=== PATIENT | female | born 1990 | race Caucasian/White ===

== ENCOUNTER 2016-12-09 00:10 | Inpatient (IN) | payer OTHER ==
[~2016-12-09] VITALS: Ht 167.6 cm; Wt 78.3 kg
[2016-12-09 00:52] VITALS: BP 124/77; PULSE 94; Ht 167.6 cm; Wt 78.3 kg
[2016-12-09] MEDS ORDERED: LACTATED RINGER'S 1,000 ML IV SCH (01:19)
[2016-12-09] MEDS ORDERED: BUTORPHANOL 2 MG INJ IV PRN (01:30)
[2016-12-09] MEDS ORDERED: OXYTOCIN 30 UNITS/LR 500 ML IV PRN ×2 (01:30→07:30)
[2016-12-09] MEDS ORDERED: LIDOCAINE 1% (MPF) 30 ML INJ INJ PRN (01:30)
[2016-12-09] MEDS ORDERED: AMPICILLIN 2 GM/NS (PMX) 100 ML IV ONE (01:30)
[2016-12-09] MEDS ORDERED: MISOPROSTOL 200 MCG TAB PR PRN ×2 (01:30→07:30)
[2016-12-09] MEDS ORDERED: CARBOPROST 250 MCG INJ IM PRN ×2 (01:30→07:30)
[2016-12-09] MEDS ORDERED: METHYLERGONOVINE 0.2 MG INJ IM PRN ×2 (01:30→07:30)
[2016-12-09] MEDS ORDERED: OXYTOCIN 30 UNITS/LR 500 ML IV SCH (01:30)
[2016-12-09 02:24] LABS: BASOPHILS % 0.3 % (0.0-2.0); EOSINOPHILS # 0.1 10^3/ul (0.0-0.5); EOSINOPHILS % 0.8 % (0.0-7.0); HEMATOCRIT 28.4 % (37.0-47.0); HEMOGLOBIN 9.1 g/dl (12.0-16.0); LYMPHOCYTES # 2.2 10^3/ul (0.8-2.9); LYMPHOCYTES % 15.8 % (15.0-51.0); MEAN CORPUSCULAR HEMOGLOBIN 19.9 pg (29.0-33.0); MEAN CORPUSCULAR VOLUME 62.1 fl (82.0-101.0); MEAN PLATELET VOLUME 11.2 fl (7.4-10.4); MONOCYTES % 7.4 % (0.0-11.0); NEUTROPHILS % 74.8 % (39.0-77.0); PLATELET COUNT 308 10^3/UL (140-415); RED BLOOD COUNT 4.57 10^6/ul (4.20-5.40); RED CELL DISTRIBUTION WIDTH 14.6 % (11.5-14.5)
[2016-12-09 02:36] LABS: INR 0.91; PROTIME 12.2 Sec (12.2-14.2)
--- NOTE | 2016-12-09 02:55 | TRIAGE ---
OB Triage Datetime Report Generated by CPN: 12/09/2016 02:55 Datetime: 12/09/2016 02:16 Vaginal Exam Dilatation (cms): 3.0 Effacement (%): 90 Station: -2 Datetime: 12/09/2016 01:55 Stage of : Labor Assessment Type: Admission Assessment Vaginal Bleeding: None Maternal Assessment Level of Consciousness: Fully Conscious DTR's/Clonus: DTRs 2+; No Clonus Headache: Denies Blurred Vision: No Respiratory Effort: Unlabored; Regular Rhythm; Equal Expansion Breath Sounds, Left: Clear and Equal Breath Sounds, Right: Clear and Equal Nausea/Vomiting: Denies RUQ Epigastric Pain: Denies Lower Extremities Edema: None Degree: None Upper Extremities Edema: None Degree: None Facial Edema: None Fall Risk Assessment History of Falling: (0) No Secondary Diagnosis: (0) No Ambulatory Aid: (0) Bedrest/Nurse Assist IV Therapy: (20) Yes Gait: (0) Normal/Bedrest/Immobile Mental Status: (0) Oriented to Own Ability Fall Score: 20 Fall Risk Score Definition: No Risk: No action required Labor Evaluation Frequency: 2-4 Duration (sec)2399: 40-70 Quality: Moderate Pattern: Normal: <= 5 Contractions in 10 Minutes Resting Tone [place]: Relaxed Heart Rate FHR Baseline Rate: 145 Variability: Moderate 6-25 bpm Accelerations: 15X15 Decelerations: None Pain Assessment Pain Scale: 8 Pain Presence: Intermittent Pain Type: Contraction Pain Location: Abdomen; Back Pain Goal: 3 Membrane Status: Ruptured Membranes Ruptured Date/Time: 12/08/2016 23:00 Membranes Rupture Method: Spontaneous Datetime: 12/09/2016 01:25 Stage of : OB Triage Temperature Route: Oral Labor Evaluation Frequency: 2-5 Monitor Mode: External Duration (sec)2399: 40-60 Quality: Mild Pattern: Normal: <= 5 Contractions in 10 Minutes Resting Tone [place]: Relaxed Heart Rate FHR Baseline Rate: 135 Monitor Mode: External US Variability: Moderate 6-25 bpm Accelerations: 15X15 Decelerations: None Category: Category I Pain Assessment Pain Scale: 5 Pain Presence: Intermittent Pain Type: Cramping Pain Location: Abdomen Pain Goal: 3 Pain Relief Measures: Comfort Measures Datetime: 12/09/2016 01:05 Time of Arrival: 12/09/2016 01:35 EGA: 39.2 Arrived By: Wheelchair Arrived From: Emergency Dept Chief Complaint: RUTURED MEMBRANE AT 2300, CXS EVERY 5 MIN Movement: Present Contractions: Occasional Time Contractions Began: 12/08/2016 23:00 Rupture of Membranes: Ruptured Vaginal Discharge: Present Patient Complaints: None Time Provider Notified: 12/09/2016 01:13 Provider Notified: LORENA Initial Plan: EFM, NITRIZINE, STERILE SPECULUM AND VE Datetime: 12/09/2016 01:02 Vaginal Exam Dilatation (cms): 3.0 Effacement (%): 90 Station: -2 Exam By: BINH Vaginal Bleeding: None Cervix, Consistency: Soft Cervix, Position: Posterior Datetime: 12/09/2016 01:00 Membrane Status: Ruptured Membranes Rupture Method: Spontaneous Amniotic Fluid Amount: Small Pool: Positive Nitrazine: Positive Datetime: 12/09/2016 00:50 Maternal Assessment Level of Consciousness: Fully Conscious DTR's/Clonus: DTRs 2+; No Clonus Headache: Denies Blurred Vision: No Respiratory Effort: Unlabored; Regular Rhythm; Equal Expansion Breath Sounds, Left: Clear and Equal Breath Sounds, Right: Clear and Equal Nausea/Vomiting: Denies RUQ Epigastric Pain: Denies Lower Extremities Edema: None Upper Extremities Edema: None Facial Edema: None Fall Risk Assessment History of Falling: (0) No Secondary Diagnosis: (0) No Ambulatory Aid: (0) Bedrest/Nurse Assist IV Therapy: (0) No Gait: (0) Normal/Bedrest/Immobile Mental Status: (0) Oriented to Own Ability Fall Score: 0 Fall Risk Score Definition: No Risk: No action required
[2016-12-09] MEDS ORDERED: AMPICILLIN 1 GM/NS (PMX) 50 ML IV SCH (05:30)
[2016-12-09] MEDS: OXYTOCIN 30 UNITS/LR 500 ML IV SCH ×2 (05:36→06:12)
--- NOTE | 2016-12-09 06:20 | DELSUM ---
Delivery Summary A-C Datetime Report Generated by CPN: 12/09/2016 06:19 DELIVERY PERSONNEL Farm Planner: Heredia, Shirlene MATERNAL INFORMATION Delivery Anesthesia: Local Medications in Delivery: 30 UNIT PITOCIN Estimated Blood Loss (ml): 250 Placenta Cultured: No Maternal Complications: None LABOR SUMMARY EDC: 12/14/2016 00:00 No. Babies in Womb: 1 Attempted: No Labor Anesthesia: None LABOR INFORMATION Reason for Induction: Not Applicable Onset of Labor: 12/08/2016 23:00 Complete Dilatation: 12/09/2016 04:34 Oxytocin: N/A Group B Beta Strep: Positive Antibiotics # of Doses: 1 Antibiotics Time of Last Dose: 12/09/2016 02:06 Steroids Given: None Reason Steroids Not Administered: Not Applicable Other Reason Not Administered: TERM MEMBRANES Membranes Rupture Method: Spontaneous Membranes Rupture Method: Spontaneous Rupture of Membranes: 12/08/2016 23:00 Length of Rupture (hr): 6.37 Amniotic Fluid Color: Clear Amniotic Fluid Amount: Small STAGES OF LABOR Stage 1 hr: 5 Stage 1 min: 34 Stage 2 hr: 0 Stage 2 min: 48 Stage 3 hr: 0 Stage 3 min: 6 Total Time in Labor hr: 6 Total Time in Labor min: 28 VAGINAL DELIVERY Episiotomy: None Laceration Extension: Second Degree Laceration Type: Perineal Laceration Repair: Yes Initial Vag Sponge Count: 10 Final Vag Sponge Count: 10 Initial Vag Sharps Count: 1 Final Vag Sharps Count: 3 Sponge Count Correct: Yes; Vaginal Sweep Performed Sharps Count Correct: Yes Count Comment: 2 SHARPs ADDED TO FIELD BABY A INFORMATION Delivery Date/Time: 12/09/2016 05:22 Method of Delivery: Vaginal Born in Route : No : N/A Forceps: N/A Vacuum Extraction: Successful Shoulder Dystocia : N/A ASSISTED DELIVERY BABY A Indication for Assisted Delivery: BRADYCARDIA Catheter Prior to Procedure: No Vacuum Number of Pulls: 1 Vacuum Number of PopOffs: 0 Vacuum Maximum Pressure Obtained: 100 Reduce Pressure btwn Ctx: No Vacuum Cooker Sulfate: KIWI Total Time Vacuum Applied: 30 SECONDS SHOULDER DYSTOCIA BABY A Delivery Date/Time: 12/09/2016 05:22 PRESENTATION/POSITION BABY A Presentation: Cephalic Cephalic Presentation: Vertex Vertex Position: Left Occipital Anterior Breech Presentation: N/A PLACENTA INFORMATION BABY A Placenta Delivery Time : 12/09/2016 05:28 Placenta Method of Delivery: Spontaneous Placenta Status: Delivered SCORES BABY A Heart Rate 1 min: >100 bpm Resp Effort 1 min: Good Cry Reflex Irritability 1 min: Cough/Sneeze/Pulls Away Muscle Tone 1 min: Active Motion Color 1 min: Body [place], Extremit Blue Resuscitation Effort 1 min: Tactile Stimulation SCORE 1 MIN: 9 Heart Rate 5 min: >100 bpm Resp Effort 5 min: Good Cry Reflex Irritability 5 min: Cough/Sneeze/Pulls Away Muscle Tone 5 min: Active Motion Color 5 min: Completely [place] Resuscitation Effort 5 min: Tactile Stimulation SCORE 5 MIN: 10 INFORMATION BABY A Gestational Age at Delivery: 39.2 Gestational Status: Full Term- 39- 40.6 Weeks Infant Outcome : Liveborn Condition : Stable Infant Sex: Female IDENTIFICATION/MEDS BABY A ID Band Number: [id number] ID Band Location: Right Leg; Left Arm Sensor Applied: Yes Sensor Number: [id number] Sensor Location : Cord Clamp Vitamin K Given : Not Given Erythromycin Given: Not Given WEIGHT/LENGTH BABY A Infant Birthweight (gm): 3185 Infant Weight (lb): 7 Infant Weight (oz): 0 Length (in): 19.00 Length (cm): 48.26 CORD INFORMATION BABY A No. Cord Vessels: 3 Nuchal Cord : Around Neck x1, Loose Cord Blood Taken: Yes Suction: Mouth; Nose ASSESSMENT BABY A Complications: Extended Bradycardi Physical Findings at Delivery: Within Normal Limits Infant Respirations: Appears Normal Cna Instructor/ALS Called : No Care By: Thiago AGUILAR Transferred To: Remains with Mother
--- NOTE | 2016-12-09 07:01 | HP ---
Date/Time of Note Date/Time of Note DATE: 12/09/16 TIME: 06:55 OB - History Hx of Present Free Text/Dictation 26y.o primigravida at 39w2d with c/o uterine contractions with rom at 12/08/16/ 2300 known to have GBS positive initial VE 3cm 90% /-2 EFM tracing reactive , confirmed SROM admitted for expectant management. Chief Complaint: U.C, SROM Estimated Due Date: Dec 14, 2016 : 1 Para: 0 Spontaneous : 0 Therapeutic : 0 Care: Good Care Ultrasounds: Normal mid trimester US Obstetrical Complications: None Medical Complications: None Past Family/Social History * Past Medical, Surgical, Family and Obstetric Histories reviewed from chart. Blood Type: O+ Rubella: immune RPR/VDRL: Negative GBS Status: Positive HBsAG: Negative OB Admission Exam Vital Signs Vital Signs Vital Signs Date Time Temp Pulse Resp B/P Pulse Ox O2 Delivery O2 Flow Rate FiO2 12/09/16 00:52 98.1 94 124/77 Room Air Physical Exam HEENT: WNL Heart: Rhythm Normal Lungs: Clear, Equal Abdomen: WNL Extremities: Normal Reflexes: Normal Cervical Dilatation: 3cm Effacement: Other (90%) Station: -2 Membranes: Ruptured Amniotic Fluid: Clear Heart Rate: 130's Accelerations: Accelerations Present Decelerations: No Decelerations Varibility: Moderate Contractions on Admission: < 5 Minutes Apart Intensity: Moderate Last 72 hours Lab Results CBC & BMP 12/09/16 02:00 OB Assessment/Plan Reason for admission: active labor Plan: Expectant Management JAQUELINE CARRILLO MD Dec 09, 2016 07:01
[2016-12-09] MEDS ORDERED: LACTATED RINGER'S 1,000 ML IV* SCH (07:17)
[2016-12-09] MEDS ORDERED: BENZOCAINE 20% 56 ML SPRAY TOP PRN (07:30)
[2016-12-09] MEDS ORDERED: LANOLIN 7 GM TUBE TOP PRN (07:30)
[2016-12-09] MEDS ORDERED: HYDROCODONE/APAP (5/325) TAB PO PRN (07:30)
[2016-12-09] MEDS ORDERED: LACTATED RINGER'S 1,000 ML IV PRN (08:00)
[2016-12-09 10:00] VITALS: BP 119/68; PULSE 82; RESP 19
[2016-12-09] MEDS: IBUPROFEN 600 MG TAB PO SCH ×3 (12:40→23:49)
[2016-12-09 16:00] VITALS: BP 112/59; PULSE 95; RESP 18
[2016-12-09 19:30] VITALS: BP 113/61; PULSE 84; RESP 19
--- NOTE | 2016-12-09 21:27 | LDN ---
Date/Time of Note Date/Time of Note DATE: 12/09/16 TIME: 21:24 Delivery Summary of a viable baby girl weighing 3185 grams, or 7#, 19" long, and with Apgars of 9/10. Weeks of Gestation 39w 2d Placenta Delivered: Spontaneously Meconium: none Episiotomy: No Perineal laceration: 2 Laceration repair: Second degree perineal laceration and a few first degree vaginal lacerations were repaired with 2-o chromic. Anesthesia type: Local Estimated blood loss: 250 Sponge & Needle done & correct: Yes All needle counts correct: Yes Any foreign bodies felt in the: No (vagina) Problems: Delivery Information Sex Sex: female Apgars 1 Minute: 9 5 Minute: 10 Suctioning Nose & mouth suctioned at antonina: Yes Delee suction performed: No Umbilical Cord Umbilical cord with: 3 Vessels Cord presentations: nuchal cord Nuchal cord present X: 1 Cord Blood was obtained: Yes Mother & Baby Disposition Disposition Mom & Baby to Maternity; Good: Yes Baby to NICU: No JEANA REHMAN MD Dec 09, 2016 21:27
[2016-12-10 04:00] VITALS: BP 105/62; PULSE 89; RESP 20
[2016-12-10] MEDS: IBUPROFEN 600 MG TAB PO SCH ×3 (05:44→18:08)
[2016-12-10 08:00] VITALS: BP 115/59; PULSE 79; RESP 20
[2016-12-10 09:17] LABS: BASOPHIL # 0.1 10^3/ul (0.0-0.1); BASOPHILS % 0.4 % (0.0-2.0); EOSINOPHILS # 0.1 10^3/ul (0.0-0.5); EOSINOPHILS % 1.1 % (0.0-7.0); HEMATOCRIT 24.6 % (37.0-47.0); HEMOGLOBIN 7.7 g/dl (12.0-16.0); LYMPHOCYTES # 2.5 10^3/ul (0.8-2.9); LYMPHOCYTES % 19.2 % (15.0-51.0); MEAN CORPUSCULAR HGB CONC 31.3 g/dl (32.0-37.0); MEAN CORPUSCULAR VOLUME 63.9 fl (82.0-101.0); MEAN PLATELET VOLUME 10.9 fl (7.4-10.4); MONOCYTE # 0.9 10^3/ul (0.3-0.9); MONOCYTES % 7.2 % (0.0-11.0); NEUTROPHILS % 71.4 % (39.0-77.0); PLATELET COUNT 229 10^3/UL (140-415); RED BLOOD COUNT 3.85 10^6/ul (4.20-5.40); RED CELL DISTRIBUTION WIDTH 14.8 % (11.5-14.5); WHITE BLOOD COUNT 12.9 10^3/ul (4.8-10.8)
[2016-12-10 12:31] VITALS: BP 124/61; PULSE 80; RESP 19
[2016-12-10 12:42] VITALS: BP 124/61; PULSE 80; RESP 20
[2016-12-10 16:57] VITALS: BP 120/77; PULSE 77; RESP 20
[2016-12-10 20:25] VITALS: BP 110/68; PULSE 70; RESP 18
--- NOTE | 2016-12-10 22:35 | QN ---
Documentation Comment Progress Note PPD #1 Pt feels well. Bleeding has lessened. is going much better today after the acquisition consultant helped her. Pain is minimal. T=98.2 BP 110/68 Fundus firm. Lochia minimal. Ext NT, no edema. WBC 12.9 Hgb 7.7 Plts 229K A: PPD #1. Anemia. P: Pt started out anemic and her BP and HR are normal so will just encourage iron therapy once she gets home. Plan D/C tomorrow. JEANA REHMAN MD Dec 10, 2016 22:35
--- NOTE | 2016-12-10 22:35 | PD.PPDC ---
PLASTERER STUCCO Discharge Instruction Condition Patient Condition: Good Diet Diet: Resume Regular Diet Activity/Restrictions Activity: Normal Activity May Shower Restrictions: No Sexual Activity Nothing in the Vagina No [place] No Tampons, douche Follow-up Follow-up with Physician: 6, Week/Weeks Return to clinic for LACTATION SPECIALIST Instructions: Fever greater than 101 Chills Worsening abdominal pain Excessive Vaginal Bleeding OB Instructions: Breast Tenderness Depression JEANA REHMAN MD Dec 10, 2016 22:35
[2016-12-11 04:15] VITALS: BP 121/67; PULSE 86; RESP 18
[2016-12-11] MEDS: IBUPROFEN 600 MG TAB PO SCH ×3 (05:51→11:18)
[2016-12-11] MEDS ORDERED: DIPHTH/TET/ACEL PERTUSS (ADULT) 0.5 ML VIAL IM* ONE (09:00)
[2016-12-11 09:12] VITALS: BP 113/70; PULSE 95; RESP 18
--- NOTE | 2016-12-11 18:45 | DS ---
Date/Time of Note Date/Time of Note DATE: 12/11/16 TIME: 18:44 Obstetrical Discharge Record Final Diagnosis Final Diagnosis: Term delivered Vaginal Delivery Obstetrical Delivery: Spontaneous, Laceration, Repaired Complications Augmentation: No Induction: No Condition on Discharge Physical Assessment Last Vitals: T=98.8 BP 113/70 Voiding: Yes Bowel Movement: Yes Breast: Filling Fundus: Firm Calf Tenderness: No Patient Condition: Good JEANA REHMAN MD Dec 11, 2016 18:45
== END 2016-12-11 16:00 | disposition home or self-care (01) | DRG 775 ==
LOC: OBT 00:10 → L-D 00:15 → OBT 01:13 → L-D 01:13 → PP1 09:20
PROVIDERS: ADMIT Obstetrics & Gynecology; ATTEND Obstetrics & Gynecology
PROC: 10E0XZZ Delivery of Products of Conception, External Approach (ICD-10-PCS; principal; 2016-12-09)
PROC: 0KQM0ZZ Repair Perineum Muscle, Open Approach (ICD-10-PCS; 2016-12-09)
PROC: 4A1HX4Z Monitoring of Products of Conception, Cardiac Electrical Activity, External Approach (ICD-10-PCS; 2016-12-09)
PROC: 3E0234Z Introduction of Serum, Toxoid and Vaccine into Muscle, Percutaneous Approach (ICD-10-PCS; 2016-12-11)
DX: O99.824 Streptococcus B carrier state complicating childbirth (principal); Z37.0 Single live birth; O70.1 Second degree perineal laceration during delivery; Z3A.39 39 weeks gestation of pregnancy; O90.81 Anemia of the puerperium; Z23 Encounter for immunization
CPT/HCPCS: 85025; 85610; 85730; 86592; 86900; 86901; 90715; G0463; J0290; J0595; J2590; J7120